=== PATIENT | female | born 1985 | race Caucasian/White ===

== ENCOUNTER 2020-07-05 18:01 | Emergency (ER) | payer BC ==
[~2020-07-05] VITALS: Ht 175.3 cm; Wt 210.0 kg
[2020-07-05 19:57] LABS: ALANINE AMINOTRANSFERASE 47 U/L (12-78); ALBUMIN 4.1 g/dL (3.4-5.0); ANION GAP 8 mmol/L (5-15); CALCIUM 9.2 mg/dL (8.5-10.1); CHLORIDE 105 mmol/L (98-107); CREATININE 0.83 mg/dL (0.55-1.02)
[2020-07-05 20:01] LABS: ALKALINE PHOSPHATASE 73 U/L (45-117); BILIRUBIN,TOTAL 1.1 mg/dL (0.2-1.0); TOTAL PROTEIN 8.1 g/dL (6.4-8.2)
[2020-07-05 20:05] LABS: MD YES
[2020-07-05 20:34] LABS: MICROSCOPIC NOT IND
[2020-07-05 20:36] LABS: MEAN CORPUSCULAR HEMOGLOBIN 26.4 pg (27.0-34.8); MEAN CORPUSCULAR VOLUME 82.3 fL (80-100); MEAN PLATELET VOLUME 8.9 fL (7.4-10.4); PLATELET COUNT 326 x10^3/uL (130-400); RED BLOOD COUNT 5.21 x10^6/uL (3.82-5.3); RED CELL DISTRIBUTION WIDTH 16.2 % (9.6-15.2)
[2020-07-05 20:38] LABS: <PLATELET ESTIMATE> ADEQUATE; <PLT MORPHOLOGY> NORMAL PLT MORPH; <RBC MORPHOLOGY> NORMAL; BASOS#(MANUAL) 0.15 x10^3/uL (0-0.1); BASOS% (MANUAL) 1 % (0-1); LYMPHS% (MANUAL) 37 % (22-44); MONOS#(MANUAL) 0.46 x10^3/uL (0.3-2.7); MONOS% (MANUAL) 3 % (2-9); SEG#(MANUAL) 9.09 x10^3/uL (1.8-6.8); SEGS% (MANUAL) 59 % (42-75)
--- NOTE | 2020-07-05 21:59 | NUR ---
bedside report from josiah shaikh. pt care transferred at this time. pt came into ED due to being at urgent care and being told she needed to come to ED due to mass. WCTM. NAD, resting on gurney, waiting on consult.
--- NOTE | 2020-07-05 22:11 | NUR ---
EB AT BEDSIDE FOR EVAL/ CONSULT
[2020-07-05 22:55] VITALS: BP 132/77
--- NOTE | 2020-07-05 22:59 | NUR ---
Patient given discharge instructions and they have confirmed that they understand the instructions. Patient ambulatory with steady gait. all questions and concerns answered appropriately. NAD, no peronal belongings left in room at time of dc.
== END 2020-07-05 23:14 | disposition home or self-care (01) ==
LOC: ED 18:31
DX: R10.31 Right lower quadrant pain (principal); R19.00 Intra-abdominal and pelvic swelling, mass and lump, unspecified site; R11.2 Nausea with vomiting, unspecified
CPT/HCPCS: 36415; 80053; 81003; 84703; 85025; 99283

== ENCOUNTER → 2020-07-05 | Outpatient (CLI) | payer BC, OTHER ==
[~2020-07-05] MED LIST: OMNIPAQUE 350 MG/ML, 100ML BOTTLE ONE
== END | disposition home or self-care (01) ==
LOC: CFH 14:43
PROVIDERS: ATTEND Family Medicine
DX: R19.09 Other intra-abdominal and pelvic swelling, mass and lump (principal); R10.9 Unspecified abdominal pain
CPT/HCPCS: 74177; Q9967

== ENCOUNTER 2020-07-17 16:52 | Inpatient (IN) | payer BC ==
[~2020-07-17] VITALS: Ht 175.3 cm; Wt 218.4 kg
[2020-07-17 19:14] LABS: BASOPHILS # (AUTO) 0.03 x10^3/uL (0-0.1); BASOPHILS % (AUTO) 0 % (0-1); EOSINOPHILS # (AUTO) 0.02 x10^3/uL (0-0.4); EOSINOPHILS % (AUTO) 0 % (1-7); LYMPHOCYTES # (AUTO) 2.34 x10^3/uL (1-3.4); LYMPHOCYTES % (AUTO) 19 % (22-44); MD NO; MEAN CORPUSCULAR HEMOGLOBIN 26.2 pg (27.0-34.8); MEAN CORPUSCULAR HGB CONC 31.5 g/dL (32.4-35.8); MEAN PLATELET VOLUME 8.9 fL (7.4-10.4); MONOCYTES # (AUTO) 0.35 x10^3/uL (0.2-0.8); MONOCYTES % (AUTO) 3 % (2-9); NEUTROPHILS # (AUTO) 9.48 x10^3/uL (1.8-6.8); NEUTROPHILS % (AUTO) 78 % (42-75); PLATELET COUNT 276 x10^3/uL (130-400); RED CELL DISTRIBUTION WIDTH 16.2 % (9.6-15.2)
[2020-07-17 19:19] LABS: INTERNATIONAL NORMALIZED RATIO 0.94 (0.93-1.1); PROTHROMBIN TIME 9.7 Seconds (9.6-11.5)
[2020-07-17 19:21] LABS: ANION GAP 7 mmol/L (5-15); CALCIUM 9.1 mg/dL (8.5-10.1); CHLORIDE 107 mmol/L (98-107)
[2020-07-17] MEDS: D5%-0.45NACL+KCL 20MEQ 1,000 ML IV SCH (19:21)
[2020-07-17] MEDS: ONDANSETRON 2MG/ML, 2ML IVPush PRN (19:24)
[2020-07-17] MEDS: MORPHINE SULFATE 4 MG/ML, 1ML IVPush PRN ×2 (19:24→23:31)
[2020-07-17 19:27] LABS: ALANINE AMINOTRANSFERASE 66 U/L (12-78); ALKALINE PHOSPHATASE 64 U/L (45-117); BILIRUBIN,TOTAL 0.9 mg/dL (0.2-1.0); TOTAL PROTEIN 7.7 g/dL (6.4-8.2)
[2020-07-17 20:00] VITALS: BP 143/89
[2020-07-17] MEDS: OXYcodone/APAP 5/325MG TABLET PO PRN (21:03)
[2020-07-17] MEDS: PROCHLORPERAZINE 5 MG/ML, 2ML IVPush PRN (22:29)
[2020-07-17] MEDS ORDERED: ALBU18HF INH (23:51)
[2020-07-17] MEDS ORDERED: NORE0.3547 PO (23:51)
[2020-07-17] MEDS ORDERED: ONDA4TAB7 PO (23:51)
[2020-07-18 01:35] VITALS: BP 127/77
[2020-07-18] MEDS: D5%-0.45NACL+KCL 20MEQ 1,000 ML IV SCH ×2 (03:29→15:07)
[2020-07-18] MEDS: MORPHINE SULFATE 4 MG/ML, 1ML IVPush PRN ×3 (03:34→11:40)
[2020-07-18] MEDS: ONDANSETRON 2MG/ML, 2ML IVPush PRN ×3 (03:34→19:15)
[2020-07-18 05:20] LABS: BASOPHILS # (AUTO) 0.06 x10^3/uL (0-0.1); BASOPHILS % (AUTO) 1 % (0-1); EOSINOPHILS # (AUTO) 0.11 x10^3/uL (0-0.4); EOSINOPHILS % (AUTO) 1 % (1-7); LYMPHOCYTES # (AUTO) 3.61 x10^3/uL (1-3.4); LYMPHOCYTES % (AUTO) 32 % (22-44); MD NO; MEAN CORPUSCULAR HEMOGLOBIN 26.4 pg (27.0-34.8); MEAN CORPUSCULAR HGB CONC 31.5 g/dL (32.4-35.8); MEAN PLATELET VOLUME 8.8 fL (7.4-10.4); MONOCYTES # (AUTO) 0.62 x10^3/uL (0.2-0.8); MONOCYTES % (AUTO) 6 % (2-9); NEUTROPHILS # (AUTO) 6.81 x10^3/uL (1.8-6.8); NEUTROPHILS % (AUTO) 61 % (42-75); PLATELET COUNT 254 x10^3/uL (130-400); RED BLOOD COUNT 4.69 x10^6/uL (3.82-5.3); RED CELL DISTRIBUTION WIDTH 16.8 % (9.6-15.2)
[2020-07-18 06:31] VITALS: BP 128/78
[2020-07-18] MEDS: PROCHLORPERAZINE 5 MG/ML, 2ML IVPush PRN ×3 (07:53→20:38)
[2020-07-18] MEDS ORDERED: MORPHINE SULFATE 4 MG/ML, 1ML IVPush ONE (11:00)
[2020-07-18 12:00] VITALS: BP 136/79
[2020-07-18] MEDS ORDERED: GOLYTELY 4,000ML ORAL.SOL PO ONE (13:30)
[2020-07-18 19:00] VITALS: BP 119/78
[2020-07-19] MEDS: D5%-0.45NACL+KCL 20MEQ 1,000 ML IV SCH ×3 (00:35→17:46)
[2020-07-19 01:16] VITALS: BP 112/68
[2020-07-19] MEDS: ONDANSETRON 2MG/ML, 2ML IVPush PRN ×3 (01:26→17:45)
[2020-07-19] MEDS: PROCHLORPERAZINE 5 MG/ML, 2ML IVPush PRN ×2 (03:48→21:09)
[2020-07-19 06:58] VITALS: BP 105/62
[2020-07-19 14:01] VITALS: BP 141/83
[2020-07-19 19:02] VITALS: BP 136/84
[2020-07-20] MEDS: ONDANSETRON 2MG/ML, 2ML IVPush PRN ×4 (00:35→18:23)
[2020-07-20 00:42] VITALS: BP 139/85
[2020-07-20] MEDS: D5%-0.45NACL+KCL 20MEQ 1,000 ML IV SCH ×3 (01:45→19:38)
[2020-07-20] MEDS: PROCHLORPERAZINE 5 MG/ML, 2ML IVPush PRN ×4 (03:09→21:55)
[2020-07-20 07:41] VITALS: BP 114/73
[2020-07-20 14:10] VITALS: BP 108/74
[2020-07-20 18:50] VITALS: BP 137/81
[2020-07-21 00:36] VITALS: BP 144/94
[2020-07-21] MEDS: ONDANSETRON 2MG/ML, 2ML IVPush PRN ×4 (00:38→20:02)
[2020-07-21] MEDS: D5%-0.45NACL+KCL 20MEQ 1,000 ML IV SCH ×3 (03:04→23:18)
[2020-07-21] MEDS: PROCHLORPERAZINE 5 MG/ML, 2ML IVPush PRN ×4 (06:29→23:50)
[2020-07-21 09:51] VITALS: BP 139/84
[2020-07-21 12:48] VITALS: BP 116/78
[2020-07-21] MEDS: ALBUTEROL HFA 90 MCG/SPRAY INH PRN (18:39)
[2020-07-21 19:23] VITALS: BP 139/70
[2020-07-22] MEDS: ONDANSETRON 2MG/ML, 2ML IVPush PRN ×4 (02:18→19:41)
[2020-07-22 02:30] VITALS: BP 147/76
[2020-07-22 05:13] LABS: INTERNATIONAL NORMALIZED RATIO 1.04 (0.93-1.1); PROTHROMBIN TIME 10.7 Seconds (9.6-11.5)
[2020-07-22] MEDS: PROCHLORPERAZINE 5 MG/ML, 2ML IVPush PRN ×2 (06:20→21:49)
[2020-07-22] MEDS: D5%-0.45NACL+KCL 20MEQ 1,000 ML IV SCH ×2 (08:40→19:41)
[2020-07-22 09:00] VITALS: BP 106/70
[2020-07-22 13:33] VITALS: BP 131/85
[2020-07-22] MEDS ORDERED: GOLYTELY 4,000ML ORAL.SOL PO SCH (16:00)
[2020-07-22 19:20] VITALS: BP 123/62
[2020-07-23] MEDS: ONDANSETRON 2MG/ML, 2ML IVPush PRN ×2 (02:01→15:15)
[2020-07-23 02:05] VITALS: BP 103/58
[2020-07-23 05:08] LABS: BASOPHILS % (AUTO) 1 % (0-1); EOSINOPHILS % (AUTO) 2 % (1-7); LYMPHOCYTES % (AUTO) 24 % (22-44); MEAN CORPUSCULAR HEMOGLOBIN 26.8 pg (27.0-34.8); MEAN CORPUSCULAR HGB CONC 32.3 g/dL (32.4-35.8); MEAN PLATELET VOLUME 8.8 fL (7.4-10.4); MONOCYTES % (AUTO) 11 % (2-9); NEUTROPHILS % (AUTO) 63 % (42-75); PLATELET COUNT 207 x10^3/uL (130-400); RED BLOOD COUNT 4.07 x10^6/uL (3.82-5.3); RED CELL DISTRIBUTION WIDTH 16.5 % (9.6-15.2)
[2020-07-23] MEDS: D5%-0.45NACL+KCL 20MEQ 1,000 ML IV SCH ×3 (05:11→20:25)
[2020-07-23 05:19] LABS: MD NO
[2020-07-23 05:20] LABS: ANION GAP 4 mmol/L (5-15); CALCIUM 8.6 mg/dL (8.5-10.1); CHLORIDE 107 mmol/L (98-107); CREATININE 0.64 mg/dL (0.55-1.02)
[2020-07-23] MEDS: PROCHLORPERAZINE 5 MG/ML, 2ML IVPush PRN (07:20)
[2020-07-23] MEDS ORDERED: ALBUMIN HUMAN 5% 500 ML ONE (07:57)
[2020-07-23 08:00] VITALS: BP 115/79
[2020-07-23] MEDS ORDERED: FENTANYL PF 250 MCG/5ML ONE (08:06)
[2020-07-23] MEDS ORDERED: MIDAZOLAM 1 MG/ML, 2ML ONE (08:06)
[2020-07-23] MEDS ORDERED: CHLORHEXIDINE 15 ML UDC ONE (08:13)
[2020-07-23] MEDS ORDERED: METHYLENE BLUE 50 MG/10 ML AMP ONE (08:22)
[2020-07-23] MEDS ORDERED: INDIGO CARMINE 0.8%, 5ML ONE (08:22)
[2020-07-23] MEDS ORDERED: ONDANSETRON 2MG/ML, 2ML IVPush PRN (11:30)
[2020-07-23] MEDS ORDERED: MEPERIDINE/PF 25MG/0.5ML IVPush PRN (11:30)
[2020-07-23] MEDS ORDERED: PROMETHAZINE 25 MG/ML, 1ML IVPush PRN (11:30)
[2020-07-23] MEDS ORDERED: hydrALAzine 20 MG/ML, 1ML IV PRN (11:30)
[2020-07-23] MEDS ORDERED: OXYcodone 5 MG/5 ML ORAL.SOL UDC PO PRN (11:30)
[2020-07-23] MEDS ORDERED: LABETALOL 5MG/ML, 20ML IV PRN (11:30)
[2020-07-23] MEDS ORDERED: ACETAMINOPHEN 325 MG TABLET PO PRN (11:30)
[2020-07-23] MEDS ORDERED: DIAZEPAM 5 MG/ML, 2ML IVPush PRN (11:30)
[2020-07-23] MEDS ORDERED: FENTANYL PF 100 MCG/2ML ONE (12:58)
[2020-07-23] MEDS: FENTANYL PF 100 MCG/2ML IV PRN ×4 (13:02→13:32)
[2020-07-23] MEDS ORDERED: MEPERIDINE/PF 25MG/ML,1ML ONE (13:31)
[2020-07-23] MEDS ORDERED: HYDROmorphone 1 MG/ML, 1ML INJ ONE (13:31)
[2020-07-23] MEDS: HYDROmorphone 1 MG/ML, 1ML INJ IVPush PRN ×2 (13:52→14:03)
[2020-07-23 15:08] VITALS: BP 122/76
[2020-07-23] MEDS: KETOROLAC 30 MG/1 ML IV SCH ×2 (15:12→23:09)
[2020-07-23 19:19] VITALS: BP 132/84
[2020-07-24 00:10] VITALS: BP 109/69
[2020-07-24] MEDS: ONDANSETRON 2MG/ML, 2ML IVPush PRN ×3 (02:05→19:54)
[2020-07-24 04:00] VITALS: BP 103/69
[2020-07-24] MEDS: D5%-0.45NACL+KCL 20MEQ 1,000 ML IV SCH ×3 (04:20→21:35)
[2020-07-24 05:00] LABS: ALBUMIN 2.4 g/dL (3.4-5.0); ANION GAP 7 mmol/L (5-15); CALCIUM 8.2 mg/dL (8.5-10.1); CHLORIDE 108 mmol/L (98-107); CREATININE 0.47 mg/dL (0.55-1.02)
[2020-07-24 05:07] LABS: BASOPHILS % (AUTO) 0 % (0-1); EOSINOPHILS % (AUTO) 0 % (1-7); LYMPHOCYTES % (AUTO) 9 % (22-44); MEAN CORPUSCULAR HEMOGLOBIN 26.3 pg (27.0-34.8); MEAN CORPUSCULAR HGB CONC 31.6 g/dL (32.4-35.8); MEAN PLATELET VOLUME 8.8 fL (7.4-10.4); MONOCYTES % (AUTO) 10 % (2-9); NEUTROPHILS % (AUTO) 81 % (42-75); PLATELET COUNT 217 x10^3/uL (130-400); RED BLOOD COUNT 3.75 x10^6/uL (3.82-5.3); RED CELL DISTRIBUTION WIDTH 16.3 % (9.6-15.2)
[2020-07-24 05:35] LABS: MD NO
[2020-07-24] MEDS: PROCHLORPERAZINE 5 MG/ML, 2ML IVPush PRN ×3 (06:37→23:14)
[2020-07-24] MEDS: KETOROLAC 30 MG/1 ML IV SCH ×3 (06:37→19:54)
[2020-07-24 07:50] VITALS: BP 102/58
[2020-07-24] MEDS: ENOXAPARIN 40 MG/0.4 ML SQ SCH (09:59)
[2020-07-24 12:55] VITALS: BP 120/76
[2020-07-24 18:59] VITALS: BP 134/78
[2020-07-24] MEDS: FAMOTIDINE 20 MG/2 ML IVPush SCH (19:54)
[2020-07-25 00:30] VITALS: BP 124/72
[2020-07-25] MEDS: ONDANSETRON 2MG/ML, 2ML IVPush PRN ×2 (02:00→08:26)
[2020-07-25] MEDS: KETOROLAC 30 MG/1 ML IV SCH ×4 (02:00→19:49)
[2020-07-25] MEDS: PROCHLORPERAZINE 5 MG/ML, 2ML IVPush PRN (05:01)
[2020-07-25 05:46] LABS: ANION GAP 7 mmol/L (5-15); CHLORIDE 105 mmol/L (98-107); CREATININE 0.59 mg/dL (0.55-1.02)
[2020-07-25 05:58] LABS: BASOPHILS % (AUTO) 1 % (0-1); EOSINOPHILS % (AUTO) 1 % (1-7); LYMPHOCYTES % (AUTO) 26 % (22-44); MEAN CORPUSCULAR HEMOGLOBIN 26.2 pg (27.0-34.8); MEAN PLATELET VOLUME 8.7 fL (7.4-10.4); MONOCYTES % (AUTO) 7 % (2-9); NEUTROPHILS % (AUTO) 66 % (42-75); PLATELET COUNT 240 x10^3/uL (130-400); RED BLOOD COUNT 3.66 x10^6/uL (3.82-5.3); RED CELL DISTRIBUTION WIDTH 16.7 % (9.6-15.2)
[2020-07-25 06:15] LABS: MD NO
[2020-07-25 07:17] VITALS: BP 110/61
[2020-07-25] MEDS: FAMOTIDINE 20 MG/2 ML IVPush SCH ×2 (08:11→19:49)
[2020-07-25] MEDS: D5%-0.45NACL+KCL 20MEQ 1,000 ML IV SCH ×3 (08:12→17:14)
[2020-07-25] MEDS: ENOXAPARIN 40 MG/0.4 ML SQ SCH (08:12)
[2020-07-25] MEDS: ALBUTEROL HFA 90 MCG/SPRAY INH PRN (08:16)
[2020-07-25 14:37] VITALS: BP 118/77
[2020-07-25] MEDS ORDERED: ENOXAPARIN 40 MG/0.4 ML SQ SCH (17:00)
[2020-07-25] MEDS: ENOXAPARIN 30 MG/0.3 ML SQ SCH (17:11)
[2020-07-25 19:00] VITALS: BP 135/84
[2020-07-26 00:34] VITALS: BP 132/67
[2020-07-26] MEDS: KETOROLAC 30 MG/1 ML IV SCH ×2 (02:04→07:47)
[2020-07-26] MEDS: D5%-0.45NACL+KCL 20MEQ 1,000 ML IV SCH ×2 (02:20→10:30)
[2020-07-26] MEDS: ENOXAPARIN 30 MG/0.3 ML SQ SCH (05:07)
[2020-07-26 07:04] VITALS: BP 116/69
[2020-07-26] MEDS: OXYcodone/APAP 5/325MG TABLET PO PRN ×2 (07:47→12:33)
[2020-07-26] MEDS: ONDANSETRON 2MG/ML, 2ML IVPush PRN ×2 (07:47→13:11)
[2020-07-26] MEDS: FAMOTIDINE 20 MG/2 ML IVPush SCH (07:47)
[2020-07-26] MEDS ORDERED: IBUPROFEN 600 MG TABLET PO PRN (12:30)
[2020-07-26] MEDS ORDERED: OXYC-306 PO (12:56)
[2020-07-26] MEDS ORDERED: IBUP-1222 PO (12:56)
[2020-07-26 13:44] VITALS: BP 129/83
== END 2020-07-26 15:00 | disposition home or self-care (01) | DRG 736 ==
LOC: 4NW 17:17 → DCLOUNGE 07-26 14:50
PROVIDERS: ADMIT Specialist; ATTEND Specialist
PROC: 0UT20ZZ Resection of Bilateral Ovaries, Open Approach (ICD-10-PCS; 2020-07-23)
PROC: 0UT70ZZ Resection of Bilateral Fallopian Tubes, Open Approach (ICD-10-PCS; 2020-07-23)
PROC: 0UT90ZZ Resection of Uterus, Open Approach (ICD-10-PCS; principal; 2020-07-23 08:30)
DX: C56.2 Malignant neoplasm of left ovary (principal); E43 Unspecified severe protein-calorie malnutrition; Z68.45 Body mass index [BMI] 70 or greater, adult; R18.8 Other ascites; C56.1 Malignant neoplasm of right ovary; R19.00 Intra-abdominal and pelvic swelling, mass and lump, unspecified site; Z20.828 Contact with and (suspected) exposure to other viral communicable diseases; J45.909 Unspecified asthma, uncomplicated; E66.01 Morbid (severe) obesity due to excess calories; N93.8 Other specified abnormal uterine and vaginal bleeding
CPT/HCPCS: 36415; 74018; J3490; 71045; 80048; 80053; 82040; 82105; 82378; 83615; 83735; 84702; 85025; 85610; 85730; 86304; 86336; 86850; 86900; 86923; 87635; 88112; 88305; 88307; 88329; 88331; 93005; G0378; J1170; J1650; J1885; J2175; J2250; J2270; J2405; J3010; P9045; Q9968; C1765; J0780; J3480